=== PATIENT | male | born 1965 | race Two or more races ===

== ENCOUNTER 2024-08-03 13:54 | Outpatient (AMB) | payer MEDICAID, SELFPAY ==
--- NOTE | 2024-08-03 13:06 | PD.ORTHTELE ---
Med/Allergies Allergies & Medications Allergies No Known Allergies Allergy (Verified 08/03/24 13:07) Medication Reconciliation meloxicam 7.5 mg tablet 7.5 mg PO BID #45 tabs 09/19/23 [Rx Confirmed 08/03/24] Subjective Visit Visit for: follow up visit and knee Immunization / Flu Flu Vaccine in the Last 12 Months: No Flu Vaccine Exclusion Criteria: No Exclusion Criteria History of Present Illness Chief complaint: XRAY RESULTS Patient is a 57-year-old male with left greater than right knee pain for over 3 years. He has tried physical therapy, and anti-inflammatories. He has tried Voltaren cream. He cannot take antiinflammatories because of his hypertension. He has not had any injections but he says that he is very afraid of needles. The pain is starting to affect his quality life. He was told that he is knee is [id number]. Personal History Occupation: NA Hobbies: NA Red flag PMH: smoker (NON SMOKER ) and other (specify) (HYPERTENSION ) Pain Pain level (0-10): 6 Pain duration: ALL DAY Pain location: inside (medial) and outside (lateral) Pain quality: sharp and aching Pain timing: increases with activity Associated signs & symptoms: none Ambulatory data Ambulatory device: none Treatments Improvement with previous injections: No Improvement with PT: No Improvement with NSAIDS: no Review of Systems Review of Systems: All systems negative unless otherwise noted in HPI. Assessment and Plan Problem List (1) Unilateral primary osteoarthritis, left knee: Status: Acute Plan: Patient is a 58-year-old male with severe left knee osteoarthritis according to him. X-rays demonstrate mild knee osteoarthritis bilaterally. He wants to continue with NSAIDs. He will continue to see his pain management doctor. 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
== END 2024-08-03 14:11 | disposition home or self-care (01) ==
PROVIDERS: Supervising Provider Orthopaedic Surgery Adult Reconstructive Orthopaedic Surgery; Visit Provider Orthopaedic Surgery Adult Reconstructive Orthopaedic Surgery
DX: M17.12 Unilateral primary osteoarthritis, left knee (principal); M25.562 Pain in left knee; I10 Essential (primary) hypertension
CPT/HCPCS: 99212; G0463